=== PATIENT | female | born 1955 | race Caucasian/White ===

== ENCOUNTER 2020-04-01 11:34 | Inpatient (IN) ==
[2020-04-01] MEDS: *HR* OxyCODONE Immed Rel 5 MG TABLET PO PRN (21:34)
[2020-04-01] MEDS: Pregabalin 75 MG CAPSULE PO SCH (21:34)
[2020-04-01] MEDS: Melatonin 3 MG TABLET PO PRN (23:50)
[2020-04-02] MEDS: Doxycycline 100 MG CAPSULE PO SCH ×2 (05:08→17:47)
[2020-04-02] MEDS: *HR* OxyCODONE Immed Rel 5 MG TABLET PO PRN ×3 (06:48→19:18)
[2020-04-02 07:32] LABS: Basophils % 0.4 %; Eosinophils # 0.4 K/mcL (0.0-0.6); Hematocrit 28.9 % (35.3-44.9); Hemoglobin 9.3 g/dL (11.5-15.4); Immature Granulocytes % 0.5 % (0-4); Lymphocytes # 2.3 K/mcL (0.6-4.6); Lymphocytes % 31.2 %; Mean Corpuscular HGB Conc 32.2 g/dL (31.6-35.5); Mean Corpuscular Hemoglobin 28.7 pg (28.0-33.3); Mean Corpuscular Volume 89.2 fL (83.0-100.0); Mean Platelet Volume 10.2 fL (9.4-12.4); Monocytes # 0.7 K/mcL (0.0-1.3); Monocytes % 10.1 %; Neutrophils # 3.9 K/mcL (1.6-8.9); Platelet Count 299 K/mcL (140-400); Red Blood Count 3.24 M/mcL (3.82-4.97); Red Cell Distribution Width 13.2 % (11.5-14.5); Segmented Neutrophils % 52.8 %; White Blood Count 7.3 K/mcL (4.3-11.1)
[2020-04-02 07:47] LABS: eGFR For African Americans > 60 (> 60); eGFR For Non-African Americans > 60 (> 60)
[2020-04-02 07:49] LABS: Activated Partial Thrombo Time 27.7 Seconds (26.0-36.0); INR 1.1; Prothrombin Time 12.4 Seconds (9.4-12.1)
[2020-04-02] MEDS: Cyanocobalamin (B-12) 1,000 MCG TABLET PO SCH (07:57)
[2020-04-02] MEDS: Multivit/Ca/Min/Fe/FA 1 TAB TABLET PO SCH (07:57)
[2020-04-02] MEDS: BuPROPion XL (24 HR) 150 MG TABLET PO SCH (07:57)
[2020-04-02] MEDS: tiZANidine 4 MG TABLET PO PRN ×3 (07:57→23:54)
[2020-04-02] MEDS: Pregabalin 75 MG CAPSULE PO SCH ×3 (07:57→23:53)
[2020-04-02] MEDS: Fluconazole 150 MG TABLET PO SCH (07:57)
[2020-04-02] MEDS: Cholecalciferol (D-3) 1,000 UNIT (25MCG) TABLET PO SCH (07:57)
[2020-04-02] MEDS: (Vitamin A 10,000 UNIT) PO SCH (07:58)
[2020-04-02] MEDS: ZINC GLUCONATE 50 MG PO SCH (07:58)
[2020-04-02] MEDS: Clotrimazole 1% CRM 15 GM TUBE TP SCH (12:52)
[2020-04-02] MEDS: PARoxetine 20 MG TABLET PO SCH (17:47)
[2020-04-02] MEDS: Melatonin 3 MG TABLET PO PRN (23:54)
[2020-04-03] MEDS: Clotrimazole 1% CRM 15 GM TUBE TP SCH ×3 (00:03→20:57)
[2020-04-03] MEDS: *HR* OxyCODONE Immed Rel 5 MG TABLET PO PRN ×3 (01:17→20:57)
[2020-04-03] MEDS: Doxycycline 100 MG CAPSULE PO SCH ×2 (06:15→17:11)
[2020-04-03] MEDS: tiZANidine 4 MG TABLET PO PRN ×2 (06:16→14:49)
[2020-04-03] MEDS: ZINC GLUCONATE 50 MG PO SCH (09:01)
[2020-04-03] MEDS: (Vitamin A 10,000 UNIT) PO SCH (09:01)
[2020-04-03] MEDS: Pregabalin 75 MG CAPSULE PO SCH ×3 (09:02→20:56)
[2020-04-03] MEDS: Cyanocobalamin (B-12) 1,000 MCG TABLET PO SCH (09:02)
[2020-04-03] MEDS: Cholecalciferol (D-3) 1,000 UNIT (25MCG) TABLET PO SCH (09:02)
[2020-04-03] MEDS: Fluconazole 150 MG TABLET PO SCH (09:02)
[2020-04-03] MEDS: Multivit/Ca/Min/Fe/FA 1 TAB TABLET PO SCH (09:03)
[2020-04-03] MEDS: BuPROPion XL (24 HR) 150 MG TABLET PO SCH (09:03)
[2020-04-03] MEDS: PARoxetine 20 MG TABLET PO SCH (17:11)
[2020-04-03] MEDS: Melatonin 3 MG TABLET PO PRN (20:57)
[2020-04-04] MEDS: *HR* OxyCODONE Immed Rel 5 MG TABLET PO PRN ×4 (03:45→21:18)
[2020-04-04] MEDS: tiZANidine 4 MG TABLET PO PRN ×2 (05:10→11:21)
[2020-04-04] MEDS: Doxycycline 100 MG CAPSULE PO SCH ×2 (05:27→17:06)
[2020-04-04] MEDS: Cholecalciferol (D-3) 1,000 UNIT (25MCG) TABLET PO SCH (09:29)
[2020-04-04] MEDS: Pregabalin 75 MG CAPSULE PO SCH ×3 (09:29→21:17)
[2020-04-04] MEDS: Multivit/Ca/Min/Fe/FA 1 TAB TABLET PO SCH (09:29)
[2020-04-04] MEDS: Cyanocobalamin (B-12) 1,000 MCG TABLET PO SCH (09:29)
[2020-04-04] MEDS: Fluconazole 150 MG TABLET PO SCH (09:29)
[2020-04-04] MEDS: BuPROPion XL (24 HR) 150 MG TABLET PO SCH (09:29)
[2020-04-04] MEDS: (Vitamin A 10,000 UNIT) PO SCH (09:31)
[2020-04-04] MEDS: ZINC GLUCONATE 50 MG PO SCH (09:31)
[2020-04-04] MEDS: Clotrimazole 1% CRM 15 GM TUBE TP SCH ×2 (09:37→21:19)
[2020-04-04] MEDS: PARoxetine 20 MG TABLET PO SCH (17:06)
[2020-04-05] MEDS: tiZANidine 4 MG TABLET PO PRN ×4 (03:13→23:57)
[2020-04-05] MEDS: Doxycycline 100 MG CAPSULE PO SCH ×2 (06:29→17:39)
[2020-04-05] MEDS: Fluconazole 150 MG TABLET PO SCH (09:11)
[2020-04-05] MEDS: Cyanocobalamin (B-12) 1,000 MCG TABLET PO SCH (09:11)
[2020-04-05] MEDS: Multivit/Ca/Min/Fe/FA 1 TAB TABLET PO SCH (09:11)
[2020-04-05] MEDS: Cholecalciferol (D-3) 1,000 UNIT (25MCG) TABLET PO SCH (09:11)
[2020-04-05] MEDS: BuPROPion XL (24 HR) 150 MG TABLET PO SCH (09:12)
[2020-04-05] MEDS: *HR* OxyCODONE Immed Rel 5 MG TABLET PO PRN ×2 (09:12→22:17)
[2020-04-05] MEDS: Pregabalin 75 MG CAPSULE PO SCH ×3 (09:12→22:18)
[2020-04-05] MEDS: ZINC GLUCONATE 50 MG PO SCH (09:18)
[2020-04-05] MEDS: Clotrimazole 1% CRM 15 GM TUBE TP SCH ×2 (09:18→22:18)
[2020-04-05] MEDS: (Vitamin A 10,000 UNIT) PO SCH (09:18)
[2020-04-05] MEDS: PARoxetine 20 MG TABLET PO SCH (17:39)
[2020-04-06] MEDS: Doxycycline 100 MG CAPSULE PO SCH ×2 (06:35→18:20)
[2020-04-06] MEDS: Clotrimazole 1% CRM 15 GM TUBE TP SCH ×2 (08:17→19:56)
[2020-04-06] MEDS: Cyanocobalamin (B-12) 1,000 MCG TABLET PO SCH (08:22)
[2020-04-06] MEDS: Pregabalin 75 MG CAPSULE PO SCH ×3 (08:22→19:53)
[2020-04-06] MEDS: BuPROPion XL (24 HR) 150 MG TABLET PO SCH (08:22)
[2020-04-06] MEDS: Multivit/Ca/Min/Fe/FA 1 TAB TABLET PO SCH (08:22)
[2020-04-06] MEDS: ZINC GLUCONATE 50 MG PO SCH (08:23)
[2020-04-06] MEDS: (Vitamin A 10,000 UNIT) PO SCH (08:23)
[2020-04-06] MEDS: Cholecalciferol (D-3) 1,000 UNIT (25MCG) TABLET PO SCH (08:23)
[2020-04-06] MEDS: Fluconazole 150 MG TABLET PO SCH (08:23)
[2020-04-06] MEDS: *HR* OxyCODONE Immed Rel 5 MG TABLET PO PRN ×2 (11:44→18:20)
[2020-04-06] MEDS: tiZANidine 4 MG TABLET PO PRN ×2 (13:28→19:53)
[2020-04-06] MEDS: PARoxetine 20 MG TABLET PO SCH (18:20)
[2020-04-06] MEDS: Melatonin 3 MG TABLET PO PRN (22:24)
[2020-04-07] MEDS: *HR* OxyCODONE Immed Rel 5 MG TABLET PO PRN ×3 (02:07→14:35)
[2020-04-07] MEDS: tiZANidine 4 MG TABLET PO PRN ×2 (02:07→08:35)
[2020-04-07] MEDS: Doxycycline 100 MG CAPSULE PO SCH (06:46)
[2020-04-07 06:50] VITALS: BP 103/55
[2020-04-07] MEDS: Cyanocobalamin (B-12) 1,000 MCG TABLET PO SCH (08:35)
[2020-04-07] MEDS: Pregabalin 75 MG CAPSULE PO SCH ×2 (08:35→15:30)
[2020-04-07] MEDS: Multivit/Ca/Min/Fe/FA 1 TAB TABLET PO SCH (08:35)
[2020-04-07] MEDS: BuPROPion XL (24 HR) 150 MG TABLET PO SCH (08:35)
[2020-04-07] MEDS: Fluconazole 150 MG TABLET PO SCH (08:35)
[2020-04-07] MEDS: Clotrimazole 1% CRM 15 GM TUBE TP SCH (11:55)
[2020-04-07] MEDS: ZINC GLUCONATE 50 MG PO SCH (11:56)
[2020-04-07] MEDS: (Vitamin A 10,000 UNIT) PO SCH (11:56)
[2020-04-07] MEDS: Cholecalciferol (D-3) 1,000 UNIT (25MCG) TABLET PO SCH (11:57)
== END 2020-04-07 15:35 | disposition home or self-care (01) | DRG 560 ==
LOC: INPPIK 18:21
PROVIDERS: ADMIT Family Medicine; ATTEND Family Medicine